=== PATIENT | female | born 1995 | race Caucasian/White ===

== ENCOUNTER 2018-07-19 18:10 | Observation (INO) | payer OTHER ==
[~2018-07-19] VITALS: Ht 162.6 cm; Wt 99.8 kg
[2018-07-19] MEDS ORDERED: PNV11TAB PO (19:00)
[2018-07-19] MEDS ORDERED: FERR-89 PO (19:01)
[2018-07-19] MEDS ORDERED: ACETAMINOPHEN 500 MG TABLET PO ONE (19:45)
[2018-07-19] MEDS ORDERED: BISACODYL 10 MG RECTAL RECTAL SUPPOSITORY PR ONE (19:45)
[2018-07-19 20:01] VITALS: BP 117/70
[2018-07-19 20:04] LABS: BASOPHILS % (AUTO) 0.5 % (0.0-2.0); EOSINOPHILS % (AUTO) 1.1 % (1.0-6.0); HEMOGLOBIN 9.7 g/dL (12.0-16.0); LYMPHOCYTES # (AUTO) 1.7 K/uL (1.0-4.8); MEAN CORPUSCULAR HEMOGLOBIN 25.6 pg (26.0-34.0); MEAN CORPUSCULAR HGB CONC 32.4 G/dL (31.0-37.0); MEAN CORPUSCULAR VOLUME 79 fL (80-100); MONOCYTES # (AUTO) 0.7 K/uL (0.1-1.0); MONOCYTES % (AUTO) 8.8 % (2.0-9.0); NEUTROPHILS # (AUTO) 5.5 K/uL (1.8-7.7); NEUTROPHILS % (AUTO) 68.6 % (40.0-70.0); PLATELET COUNT (AUTO)-OB 400 K/uL (150-450); RED CELL DISTRIBUTION WIDTH 14.9 % (11.5-14.5)
[2018-07-19 20:33] LABS: ANION GAP 9 mmol/L (8-16); CALCIUM, TOTAL 8.9 mg/dL (8.8-10.5); CARBON DIOXIDE 25 mmol/L (22-29); CHLORIDE 102 mmol/L (98-107); CREATININE 0.66 mg/dL (0.60-1.30); GLOMERULAR FILTR. RATE CALC > 60 mL/min (>60); GLUCOSE,RANDOM 80 mg/dL (70-110); SODIUM SERUM 136 mmol/L (136-145); UREA NITROGEN, BLOOD 9 mg/dL (7-18)
[2018-07-19 20:38] LABS: ALANINE AMINOTRANSFERASE 20 U/L (12-78); ALBUMIN 2.3 g/dL (3.4-5.0); ALKALINE PHOSPHATASE 169 U/L (46-116); ASPARTATE AMINOTRANSFERASE 20 U/L (15-37); BILIRUBIN,TOTAL 0.2 mg/dL (0.1-1.0); TOTAL PROTEIN, SERUM 6.4 g/dL (6.4-8.2); URIC ACID 3.8 mg/dL (2.6-7.2)
[2018-07-19] MEDS ORDERED: SENNA/DOCUSATE SODIUM 8.6-50 MG TABLET PO SCH (21:00)
== END 2018-07-20 08:25 | disposition home or self-care (01) ==
LOC: 4S 18:10
PROVIDERS: ADMIT Obstetrics & Gynecology; ATTEND Obstetrics & Gynecology
DX: O26.893 Other specified pregnancy related conditions, third trimester (principal); K59.00 Constipation, unspecified; R51 Headache; R10.9 Unspecified abdominal pain; Z3A.36 36 weeks gestation of pregnancy
CPT/HCPCS: 36415; 80053; 84550; 85025; G0378 ×2

== ENCOUNTER 2018-08-08 09:00 | Observation (INO) | payer OTHER ==
[~2018-08-08] VITALS: Ht 165 cm; Wt 101.2 kg
[~2018-08-08 09:00] MED LIST: FERR-89 PO; PNV11TAB PO
[2018-08-08 09:29] VITALS: BP 110/66
== END 2018-08-08 10:10 | disposition home or self-care (01) ==
LOC: 4S 09:00
PROVIDERS: ADMIT Obstetrics & Gynecology; ATTEND Obstetrics & Gynecology
DX: O62.9 Abnormality of forces of labor, unspecified (principal); O26.893 Other specified pregnancy related conditions, third trimester; R10.9 Unspecified abdominal pain; Z3A.39 39 weeks gestation of pregnancy

== ENCOUNTER 2018-08-09 01:38 | Observation (INO) | payer OTHER ==
[~2018-08-09] VITALS: Ht 162.6 cm; Wt 100.8 kg
[2018-08-09 02:07] VITALS: BP 116/69
[2018-08-10] MEDS ORDERED: IBUP-2071 PO (13:25)
[2018-08-10] MEDS ORDERED: DSS100 PO (13:26)
[2018-08-10] MEDS ORDERED: FERR-89 PO (13:27)
== END 2018-08-09 06:50 | disposition home or self-care (01) ==
LOC: 4S 01:38
PROVIDERS: ADMIT Obstetrics & Gynecology; ATTEND Obstetrics & Gynecology
DX: O62.9 Abnormality of forces of labor, unspecified (principal); O26.893 Other specified pregnancy related conditions, third trimester; R10.9 Unspecified abdominal pain; O99.89 Other specified diseases and conditions complicating pregnancy, childbirth and the puerperium; M54.5 Low back pain; Z3A.39 39 weeks gestation of pregnancy

== ENCOUNTER 2018-08-09 18:46 | Inpatient (IN) | payer OTHER ==
[2018-08-09] MEDS ORDERED: RINGERS SOLUTION,LACTATED 1,000 ML IV SCH ×2 (18:56→19:37)
[2018-08-09] MEDS ORDERED: RINGERS SOLUTION,LACTATED 1,000 ML IV PRN (18:56)
[2018-08-09] MEDS ORDERED: METOCLOPRAMIDE HCL 5 MG/ML 2 ML VIAL IVP PRN (19:00)
[2018-08-09] MEDS ORDERED: CITRIC ACID/SODIUM CITRATE 30 ML SOLUTION UDCUP PO PRN (19:00)
[2018-08-09] MEDS ORDERED: LIDOCAINE/PF 1% 30 ML VIAL INJ PRN (19:00)
[2018-08-09] MEDS ORDERED: OXYTOCIN 10 UNITS/ML VIAL IM ONE (19:00)
[2018-08-09] MEDS ORDERED: OXYTOCIN 30 UNITS/LACT RINGERS 500 ML IV ONE ×3 (19:06→19:52)
[2018-08-09] MEDS ORDERED: CeFAZolin 2 GM/DEXTROSE 50 ML IV ONE ×2 (19:24→19:30)
[2018-08-09] MEDS ORDERED: METHYLERGONOVINE MALEATE 0.2 MG/ML VIAL IM PRN (19:30)
[2018-08-09 19:39] VITALS: BP 117/70
[2018-08-09] MEDS ORDERED: MISOPROSTOL 100 MCG TABLET ONE ×2 (19:42→19:43)
[2018-08-09] MEDS ORDERED: MISOPROSTOL 25 MCG TABLET PR ONE (19:45)
[2018-08-09 20:00] LABS: HEMATOCRIT 31.1 % (36-46); HEMOGLOBIN 10.3 g/dL (12.0-16.0); MEAN CORPUSCULAR HEMOGLOBIN 26.2 pg (26.0-34.0); MEAN CORPUSCULAR VOLUME 80 fL (80-100); PLATELET COUNT (AUTO) 395 K/uL (150-450); RED BLOOD CELL COUNT(AUTO) 3.91 MIL/uL (4.00-5.20); RED CELL DISTRIBUTION WIDTH 17.9 % (11.5-14.5)
[2018-08-09] MEDS ORDERED: MISOPROSTOL 100 MCG TABLET PR ONE (20:00)
[2018-08-09] MEDS ORDERED: OXYGEN THERAPY IH SCH (20:00)
[2018-08-09 20:25] LABS: BAND NEUTROPHILS % (MANUAL) 10 % (0-5); LYMPHOCYTES % (MANUAL) 5 % (22-44); MONOCYTES % (MANUAL) 3 % (2-9); SEGMENTED NEUTROPHILS % 82 % (40-70)
[2018-08-09 20:26] LABS: PLATELET MORPHOLOGY COMMENT GIANT PLTS PRESENT
[2018-08-09] MEDS ORDERED: ACETAMINOPHEN/CODEINE 300-30 MG TABLET PO PRN ×2 (20:30)
[2018-08-09] MEDS ORDERED: BENZOCAINE 20%/MENTHOL 56 GM SPRAY CANISTER TP PRN (20:30)
[2018-08-09] MEDS ORDERED: LANOLIN 7 GM OINTMENT TP PRN (20:30)
[2018-08-09] MEDS ORDERED: GLYCERIN/WITCH HAZEL LEAF 40 PADS JAR TP PRN (20:30)
[2018-08-09] MEDS: MAGNESIUM HYDROXIDE SUSPENSION 30 ML UDCUP PO SCH (21:34)
[2018-08-09] MEDS: IBUPROFEN 800 MG TABLET PO SCH (22:05)
[2018-08-10] MEDS ORDERED: GLYCERIN/WITCH HAZEL LEAF 40 PADS JAR TP PRN (00:15)
[2018-08-10] MEDS ORDERED: BENZOCAINE 20%/MENTHOL 56 GM SPRAY CANISTER TP PRN (00:15)
[2018-08-10] MEDS ORDERED: ACETAMINOPHEN/CODEINE 300-30 MG TABLET PO PRN ×2 (00:15)
[2018-08-10] MEDS ORDERED: LANOLIN 7 GM OINTMENT TP PRN (00:15)
[2018-08-10] MEDS ORDERED: IBUPROFEN 800 MG TABLET PO SCH (00:20)
[2018-08-10] MEDS: IBUPROFEN 800 MG TABLET PO SCH (04:09)
[2018-08-10 05:24] LABS: BASOPHILS % (AUTO) 0.2 % (0.0-2.0); EOSINOPHILS % (AUTO) 0.1 % (1.0-6.0); HEMATOCRIT 23.9 % (36-46); HEMOGLOBIN 8.2 g/dL (12.0-16.0); LYMPHOCYTES # (AUTO) 2.1 K/uL (1.0-4.8); LYMPHOCYTES % (AUTO) 16.6 % (22.0-44.0); MEAN CORPUSCULAR HEMOGLOBIN 27.1 pg (26.0-34.0); MEAN CORPUSCULAR VOLUME 80 fL (80-100); MONOCYTES % (AUTO) 8.2 % (2.0-9.0); NEUTROPHILS # (AUTO) 9.4 K/uL (1.8-7.7); NEUTROPHILS % (AUTO) 74.9 % (40.0-70.0); PLATELET COUNT (AUTO)-OB 369 K/uL (150-450); RED CELL DISTRIBUTION WIDTH 17.9 % (11.5-14.5)
[2018-08-10] MEDS: MAGNESIUM HYDROXIDE SUSPENSION 30 ML UDCUP PO SCH (08:52)
[2018-08-10] MEDS ORDERED: MAGNESIUM HYDROXIDE SUSPENSION 30 ML UDCUP PO SCH (09:00)
[2018-08-10] MEDS ORDERED: IBUP-2071 PO (13:25)
[2018-08-10] MEDS ORDERED: DSS100 PO (13:26)
[2018-08-10] MEDS ORDERED: FERR-89 PO (13:27)
== END 2018-08-10 17:30 | disposition home or self-care (01) | DRG 807 ==
LOC: 4S 18:46 → UNDOADMOB 19:01 → 4S 19:01 → OBSVTOIN 19:01 → INTOOBSV 19:01
PROVIDERS: ADMIT Obstetrics & Gynecology; ATTEND Obstetrics & Gynecology
PROC: 10E0XZZ Delivery of Products of Conception, External Approach (ICD-10-PCS; principal; 2018-08-09)
PROC: 0KQM0ZZ Repair Perineum Muscle, Open Approach (ICD-10-PCS; 2018-08-09)
DX: O70.1 Second degree perineal laceration during delivery (principal); Z37.0 Single live birth; Z3A.39 39 weeks gestation of pregnancy
CPT/HCPCS: 86850; 86900; 86901; J0690; J2210; J2590; J3490; J7120